=== PATIENT | female | born 1990 | race Two or more races ===

== ENCOUNTER 2018-11-24 15:46 | Emergency (ER) | payer MEDICAID ==
[2018-11-24] MEDS ORDERED: Ketorolac 60 MG/2 ML SDV IM ONE (16:18)
[2018-11-24] MEDS ORDERED: Cyclobenzaprine 10 MG Tab PO ONE (16:18)
--- NOTE | 2018-11-24 16:21 | EDM.PDOC ---
ED HPI GENERAL MEDICAL PROBLEM - General Chief Complaint: Neck Problem Stated Complaint: BACK AND SHOULDER PAIN Time Seen by Provider: 11/24/18 15:59 Source of Information: Reports: Patient History Limitations: Reports: No Limitations - History of Present Illness INITIAL COMMENTS - FREE TEXT/NARRATIVE: 28 yo female presents with Upper back and neck pain. This is chronic in nature but has worsened after her physical therapy appt 2 days ago. right side is worse then left. denies injury to neck or back. 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: Endocrine/Metabolic History: Reports: Hypothyroidism - Past Surgical History Female Surgical History: Reports: Section Social & Family History - Tobacco Use Smoking Status *Q: Never Smoker - Caffeine Use Caffeine Use: Reports: Coffee, Soda - Recreational Drug Use Recreational Drug Use: No ED ROS GENERAL - Review of Systems Review Of Systems: See Below Constitutional: Denies: Fever, Chills Respiratory: Denies: Shortness of Breath, Wheezing Cardiovascular: Denies: Chest Pain GI/Abdominal: Denies: Abdominal Pain Skin: Denies: Rash ED EXAM, UPPER BACK/NECK PAIN - Physical Exam Exam: See Below Exam Limited By: No Limitations General Appearance: Alert, WD/WN, No Apparent Distress Neck Exam: Full Range of Motion, Normal Alignment, Muscle Spasm, Paraspinous Muscle Tender Cardiovascular/Respiratory: Regular Rate, Rhythm Back Exam: Full Range of Motion, Muscle Spasm, Paraspinal Tenderness (upper thoratic right worse then left). No: CVA Tenderness (R), CVA Tenderness (L) Course - Vital Signs Last Recorded V/S: Last Vital Signs Temp 35.5 C 11/24/18 16:06 Pulse 108 H 11/24/18 16:06 Resp 16 11/24/18 16:06 BP 125/79 11/24/18 16:06 Pulse Ox 97 11/24/18 16:06 - Orders/Labs/Meds Meds: Medications Discontinued Medications Generic Name Dose Route Start Last Admin Trade Name Freq PRN Reason Stop Dose Admin Cyclobenzaprine HCl 10 mg 11/24/18 16:18 11/24/18 16:23 Flexeril PO 11/24/18 16:19 10 mg ONETIME ONE Administration Ketorolac Tromethamine 60 mg 11/24/18 16:18 11/24/18 16:24 Toradol IM 11/24/18 16:19 60 mg ONETIME ONE Administration - Re-Assessments/Exams Free Text/Narrative Re-Assessment/Exam: 11/24/18 16:51 pain reduced to 6/10 after medications pt state she is ready to go home Departure - Departure Time of Disposition: 16:52 Disposition: Home, Self-Care 01 Condition: Good Clinical Impression: Cervicalgia, Cervical paraspinal muscle spasm, Paraspinal muscle spasm - Discharge Information *PRESCRIPTION DRUG MONITORING PROGRAM REVIEWED*: Not Applicable *COPY OF PRESCRIPTION DRUG MONITORING REPORT IN PATIENT NATALIE: Not Applicable Instructions: Back Exercises Referrals: PCP,None [Primary Care Provider] - Forms: ED Department Discharge Additional Instructions: cyclobenzaprine 5-10 mg every 8 hours as needed for muscle spasm continue with physical therapy alternate between heat and cold to areas of pain naproxen as needed
== END 2018-11-24 17:00 | disposition home or self-care (01) ==
LOC: JP.ED 15:46
DX: M62.838 Other muscle spasm (principal); M62.830 Muscle spasm of back; M54.2 Cervicalgia; E03.9 Hypothyroidism, unspecified; Z79.899 Other long term (current) drug therapy
CPT/HCPCS: 96372; 99283; A9270; J1885

== ENCOUNTER 2018-12-27 17:38 | Emergency (ER) | payer MEDICAID ==
--- NOTE | 2018-12-27 18:30 | EDM.PDOC ---
ED HPI GENERAL MEDICAL PROBLEM - General Chief Complaint: Neck Problem Stated Complaint: NECK PAIN Time Seen by Provider: 12/27/18 18:10 Source of Information: Reports: Patient, RN History Limitations: Reports: Language Barrier (French not great) - History of Present Illness INITIAL COMMENTS - FREE TEXT/NARRATIVE: 28 yo female new in town about 7 mos ago has been seeing a local primary care provider for her back. Has been to PT for that. Now has neck pain and comes to the ER asking for an X-ray. Has not had an injury. Neck worse since waking up today. Has not taken anything for pain. No numbness or weakness going down her arms. Hurts to turn her head. Has Flexeril, the last dose she took was last night. No other self tx. Onset: Today Duration: Hour(s): Location: Reports: Neck Quality: Reports: Other (stiff) Severity: Moderate Improves with: Reports: None Worsens with: Reports: Other (unknown) Context: Reports: Other (unknown cause) Associated Symptoms: Reports: No Other Symptoms Treatments SENIOR TREASURY CONSULTANT: Reports: Other (see below) (none) Neck Pain Score (Numeric/FACES): 10 - Related Data Allergies Allergy/AdvReac Type Severity Reaction Status Date / Time No Known Allergies Allergy Verified 12/27/18 18:02 Home Meds: Home Meds Levothyroxine 150 mcg PO ACBREAKFAST 11/24/18 [History] Cyclobenzaprine [Flexeril] 10 mg PO TID PRN 12/27/18 [History] Past Medical History - Past Health History Medical/Surgical History: Denies 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: Endocrine/Metabolic History: Reports: Hypothyroidism - Past Surgical History Female Surgical History: Reports: Section Social & Family History - Tobacco Use Smoking Status *Q: Never Smoker Second Hand Smoke Exposure: No - Caffeine Use Caffeine Use: Reports: Coffee, Energy Drinks, Soda, Tea - Alcohol Use Days Per Week of Alcohol Use: 0 - Recreational Drug Use Recreational Drug Use: No ED ROS GENERAL - Review of Systems Review Of Systems: See Below Constitutional: Reports: No Symptoms HEENT: Reports: No Symptoms Respiratory: Reports: No Symptoms Musculoskeletal: Reports: Neck Pain Skin: Reports: No Symptoms Neurological: Reports: No Symptoms ED EXAM, UPPER BACK/NECK PAIN - Physical Exam Exam: See Below Exam Limited By: No Limitations General Appearance: Alert, WD/WN, No Apparent Distress, Obese Eye Exam: Bilateral Eye: Normal Inspection Ears Exam: Hearing Grossly Normal Nose Exam: Normal Inspection, No Blood Throat/Mouth Exam: Normal Inspection, Normal Lips, Normal Oropharynx, Normal Voice, No Airway Compromise Head Exam: Atraumatic, Normocephalic Neck Exam: Limited Range of Motion, Stiff Neck. 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 Tested, No Motor/Sensory Deficits, Alert, Normal Mood/Affect, Oriented x 3 Psychiatric: Normal Affect, Normal Mood Skin Exam: Normal Color, Warm/Dry Course - Vital Signs Last Recorded V/S: Last Vital Signs Temp 36.7 C 12/27/18 18:09 Pulse 119 H 12/27/18 18:09 Resp 20 12/27/18 18:09 BP 114/80 12/27/18 18:09 Pulse Ox 96 12/27/18 18:09 Departure - Departure Time of Disposition: 18:31 Disposition: Home, Self-Care 01 Condition: Fair Clinical Impression: Neck pain - Discharge Information *PRESCRIPTION DRUG MONITORING PROGRAM REVIEWED*: No *COPY OF PRESCRIPTION DRUG MONITORING REPORT IN PATIENT NATALIE: No Referrals: PCP,None [Primary Care Provider] - Additional Instructions: Try your Flexeril as directed. Add ibuprofen up to 600 mg and acetaminophen up to 1000 mg every 6 hrs as needed for pain relief. Massage(with BenGay) and moist heat may also benefit. I recommend you try seeking out medicare sales representative if not getting relief with the above treatments.
== END 2018-12-27 18:39 | disposition home or self-care (01) ==
LOC: JP.ED 17:38
DX: M54.2 Cervicalgia (principal); E03.9 Hypothyroidism, unspecified; Z79.899 Other long term (current) drug therapy
CPT/HCPCS: 99282; 99283

== ENCOUNTER 2019-04-14 09:54 | Emergency (ER) | payer MEDICAID ==
--- NOTE | 2019-04-14 10:47 | EDM.PDOC ---
ED HPI GENERAL MEDICAL PROBLEM - General Chief Complaint: Neck Problem Stated Complaint: RT SHOULDER PAIN Time Seen by Provider: 04/14/19 10:41 Source of Information: Reports: Patient History Limitations: Reports: No Limitations - History of Present Illness INITIAL COMMENTS - FREE TEXT/NARRATIVE: pt arrived with pain in the post cervical area. This is all on the rt side. Onset: Gradual, Other ( this has been going on for about 3 weeks. 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 Musculoskeletal History: Reports: Neck Pain, Chronic Psychiatric History: Reports: Depression Endocrine/Metabolic History: Reports: Hypothyroidism - Past Surgical History Female Surgical History: Reports: Section Social & Family History - Caffeine Use Caffeine Use: Reports: Coffee, Energy Drinks, Soda, Tea ED ROS GENERAL - Review of Systems Review Of Systems: See Below Constitutional: Reports: No Symptoms HEENT: Reports: No Symptoms Respiratory: Reports: No Symptoms Cardiovascular: Reports: No Symptoms Endocrine: Reports: No Symptoms GI/Abdominal: Reports: No Symptoms : Reports: No Symptoms Musculoskeletal: Reports: Other ( severe pain in rt post cervical area. ) Skin: Reports: No Symptoms ED EXAM, UPPER BACK/NECK PAIN - Physical Exam Exam: See Below Text/Narrative:: pt has a 2 week history of her neck on the rt being very tight and uncomfortable. She has not fallen or injured herself. Exam Limited By: Uncooperative General Appearance: Anxious, Moderate Distress Ears Exam: Normal External Exam Nose Exam: Normal Inspection Throat/Mouth Exam: Normal Inspection Head Exam: Atraumatic Neck Exam: Paraspinous Muscle Tender, Other (mainly tender on the rt. ) Cardiovascular/Respiratory: Regular Rate, Rhythm GI/Abdominal: Soft, Non-Tender Course - Vital Signs Last Recorded V/S: Last Vital Signs Temp 37.0 C 04/14/19 10:20 Pulse 103 H 04/14/19 10:20 Resp 16 04/14/19 10:20 BP 130/78 04/14/19 10:20 Pulse Ox 96 04/14/19 10:20 - Orders/Labs/Meds Meds: Medications Discontinued Medications Generic Name Dose Route Start Last Admin Trade Name Carmen PRN Reason Stop Dose Admin Baclofen 10 mg 04/14/19 10:39 04/14/19 10:51 Lioresal PO 04/14/19 10:40 10 mg ONETIME ONE Administration Ketorolac Tromethamine 60 mg 04/14/19 10:40 04/14/19 10:52 Toradol IM 04/14/19 10:41 60 mg ONETIME ONE Administration Oxycodone/Acetaminophen 1 tab 04/14/19 11:41 04/14/19 11:47 Percocet 325-5 Mg PO 04/14/19 11:42 1 tab ONETIME ONE Administration - Re-Assessments/Exams Free Text/Narrative Re-Assessment/Exam: 04/14/19 11:50 pt was given torodol 60 mg im, baclofen 10 mg and percocet 5/325. She is feeling better. Departure - Departure Time of Disposition: 11:42 Disposition: Home, Self-Care 01 Condition: Fair Clinical Impression: Cervical paraspinous muscle spasm - Discharge Information Referrals: PCP,None [Primary Care Provider] - Forms: ED Department Discharge Care Plan Goals: moist warm packs to the rt post cervical area tid, follow with a cool pack, no work for the next 2 days, stretching exercises, baclofen 10mg bid, tordol 10mg qid for pain, Pt to be scheduled referal was made. If not improving see regular Dr in 4-5 days, at that point may need a MRI
[2019-04-14] MEDS: Baclofen 10 MG Tab PO ONE (10:51)
[2019-04-14] MEDS: Ketorolac 60 MG/2 ML SDV IM ONE (10:52)
[2019-04-14] MEDS: Acetaminophen/oxyCODONE 325-5 MG Tab PO ONE (11:47)
== END 2019-04-14 12:01 | disposition home or self-care (01) ==
LOC: JP.ED 09:54
DX: M62.838 Other muscle spasm (principal); E03.9 Hypothyroidism, unspecified
CPT/HCPCS: 96372; 99283; A9270; J1885